=== PATIENT | male | born 1940 | race Caucasian/White ===

== ENCOUNTER 2016-06-07 16:18 | Emergency (ER) | payer MEDICARE, MEDICAID ==
[~2016-06-07] VITALS: Ht 160 cm; Wt 100.0 kg
[2016-06-07 16:59] VITALS: Ht 160 cm; Wt 100.0 kg
[2016-06-08] MEDS ORDERED: ONDANSETRON (ODT) 4 MG TAB ODT STA (00:04)
[2016-06-08] MEDS ORDERED: OXYC-279 PO (00:07)
[2016-06-08] MEDS ORDERED: BACTDS PO (00:07)
[2016-06-08] MEDS ORDERED: MUPI22OI2 TOP (00:07)
[2016-06-08] MEDS ORDERED: CEPH-443 PO (00:07)
--- NOTE | 2016-06-08 00:11 | ERD ---
ER Documentation Chief Complaint Date/Time DATE: 06/08/16 TIME: 00:09 Chief Complaint TRIPPED AND FALL.COMPLAINTS OF HEADACHE,BACK PAIN HPI 76-year-old man with a long history of chronic pain syndrome and lower extremity peripheral edema presents with low back pain and continued swelling in his lower legs. Patient states his symptoms got worse when he tripped over the pavement earlier today. Patient is requesting opioid analgesics and a prescription. Patient denies suicidal homicidal ideation, no fevers or chills, no breakdown in his skin, no bleeding, no complaints of chest pain or shortness of breath. Patient denies any head or neck injury. ROS All systems reviewed and are negative except as per history of present illness. Medications Home Meds Active Scripts Mupirocin* (Bactroban*) 2% -22 Gram Oint...g., 1 APPLIC TOP BID for 14 Days, #1 TUB Prov:GREG MONTANEZ MD 06/08/16 Sulfamethoxazole-Trimethoprim* (Bactrim* DS) 800-160 Mg Tab, 1 TAB PO BID for 7 Days, TAB Prov:GREG MONTANEZ MD 06/08/16 Cephalexin* (Keflex*) 500 Mg Capsule, 500 MG PO TID for 7 Days, CAP Prov:GREG MONTANEZ MD 06/08/16 Oxycodone HCl/Acetaminophen (Percocet 5-325 mg Tablet) 1 Each Tablet, 1 EACH PO TID for PAIN, #15 TAB Prov:GREG MONTANEZ MD 06/08/16 Allergies Allergies: Coded Allergies: Iodine and Iodide Containing Produc (Verified Allergy, Unknown, 05/08/16) PMhx/Soc Chronic pain syndrome, chronic lower extremity peripheral edema and stasis dermatitis, depression, chronic cellulitis of the lower extremities, hypertension, diabetes mellitus, hyperparathyroidism History of Surgery: No Anesthesia Reaction: No Hx Neurological Disorder: No Hx Respiratory Disorders: No Hx Cardiac Disorders: Yes (hyperlipidemia, htn) Hx Psychiatric Problems: Yes (depression) Hx Miscellaneous Medical Probl: Yes (cellulitis, ckd, uti, anemia, hyperparathyroidism,venous/arterial insufficie) Hx Alcohol Use: No Hx Substance Use: No Hx Tobacco Use: No Smoking Status: Never smoker FmHx Family History: No diabetes Physical Exam Vitals Vital Signs Date Time Temp Pulse Resp B/P Pulse Ox O2 Delivery O2 Flow Rate FiO2 06/08/16 00:56 98.0 80 20 160/69 100 Room Air 06/07/16 23:06 98.3 78 20 188/89 100 Room Air 06/07/16 16:59 98.1 77 18 210/96 98 Physical Exam GENERAL: Well-developed, well-nourished, well-hydrated, in no apparent distress , looks nontoxic in appearance, afebrile HEENT: Moist mucous membranes, pink conjunctiva, no cervical spine tenderness or step-off deformities, no goiter, no jaundice or icterus, extraocular movements intact without pain. No submandibular induration, and no pharyngeal erythema NEURO: Alert and oriented 3, cranial nerves II through XII intact bilaterally, pupils equal round reactive to light, no focal deficits or facial asymmetry, sensation intact distally Strength 5/5 in upper and lower extremities bilaterally CARDIAC: Regular rate and rhythm, no murmurs rubs or gallops LUNGS: Clear bilaterally no wheezing crackles or stridor ABDOMEN: Soft nontender, no guarding, no rigidity, no rebound, no psoas sign no obturator sign. Normoactive bowel sounds SKIN: Warm and dry to touch, no abrasions, contusions, or hematomas, no lacerations, no ecchymosis, no target lesions, and without ulcers EXTREMITIES: No clubbing cyanosis, chronic stasis dermatitis and erythematous skin changes to the lower extremities, calves are bilaterally symmetrical, no Homans sign, no popliteal cord sign. Distal pulses equal and bilateral PSYCH: Normal affect without agitation or irritability Results 24 hrs Current Medications Medications (Trade) Dose Ordered Sig/Cr Route PRN Reason Start Time Stop Time Status Last Admin Dose Admin Morphine Sulfate (morphine) 4 mg ONCE ONCE IM 06/08/16 00:30 06/08/16 00:32 DC 06/08/16 00:50 Ondansetron HCl (Zofran Odt) 4 mg ONCE STAT ODT 06/08/16 00:04 06/08/16 00:06 DC 06/08/16 00:50 Clonidine (Catapres) 0.1 mg ONCE ONCE PO 06/08/16 00:30 06/08/16 00:32 DC 06/08/16 00:50 Mupirocin (Bactroban) 1 applic ONCE ONCE TOP 06/08/16 00:30 06/08/16 00:32 DC 06/08/16 00:50 Procedures/MDM I administered morphine 4 mg intramuscular injection, Zofran 4 mg ODT sublingual , cephalexin 500 mg p.o., clonidine 0.1 mg p.o. for hypertension. Blood pressure improved after medications were administered. I also administered mupirocin 2% antibiotic ointment to the lower extremities bilaterally and provided verbal instructions to continue mupirocin antibiotic ointment topically to the legs. Patient has a long history of stasis dermatitis and erythema to the legs and has in the past been treated multiple times with oral antibiotics. He states he sleeps in his car, and I offered him a social media marketer consultation although he refused. I recommended he follow-up with his PMD and wound clinic and gave him the address and hours of operation of our wound clinic. I will be prescribing him oral antibiotics and suspect he can be treated successfully with these antibiotics over the course of 1 week. I also recommended strict compliance with his antihypertensive medications. Patient was hypertensive here in the ED although after treatment blood pressure fell to within normal limits. Differential diagnoses considered, included but not limited to septic arthritis , aortic dissection, abdominal aortic aneurysm, sepsis, stroke, meningitis, encephalitis, pneumonia, appendicitis, cholecystitis, bowel obstruction, pyelonephritis, nephrolithiasis, cystitis, as well as metabolic, hematologic, and electrolyte abnormalities. As well as abscess, cellulitis, fractures, and dislocations. Patient feels much better at this time, and vital signs are normal, symptoms have improved. I did give strict instructions to return to the ED if symptoms continue or worsen, patient will otherwise follow-up with primary care physician. Patient understood instructions and agreed to plan. Departure Diagnosis: Primary Impression: Chronic pain Chronic pain type: chronic pain syndrome Qualified Code: G89.4 - Chronic pain syndrome Additional Impressions: Back pain Back pain location: low back pain Chronicity: acute Back pain laterality: bilateral Sciatica presence: without sciatica Qualified Code: M54.5 - Acute bilateral low back pain without sciatica Stasis dermatitis Laterality: bilateral Qualified Code: I83.11 - Venous stasis dermatitis of both lower extremities Hypertension Hypertension type: essential hypertension Qualified Code: I10 - Essential hypertension Condition: Good Patient Instructions: Back Pain (Acute Or Chronic), Peripheral Edema, Bilateral GREG MONTANEZ MD Jun 08, 2016 00:11
[2016-06-08] MEDS ORDERED: MUPIROCIN 2% 22 GM OINT TOP ONE (00:30)
[2016-06-08] MEDS ORDERED: morphine 10 MG INJ IM ONE (00:30)
[2016-06-08 00:56] VITALS: BP 160/69; PULSE 80; RESP 20; TEMP 98
== END 2016-06-08 01:11 | disposition home or self-care (01) ==
LOC: E/R 16:18
DX: S39.92XA Unspecified injury of lower back, initial encounter (principal); I83.11 Varicose veins of right lower extremity with inflammation; G89.4 Chronic pain syndrome; I12.9 Hypertensive chronic kidney disease with stage 1 through stage 4 chronic kidney disease, or unspecified chronic kidney disease; N18.9 Chronic kidney disease, unspecified; E11.9 Type 2 diabetes mellitus without complications; W01.0XXA Fall on same level from slipping, tripping and stumbling without subsequent striking against object, initial encounter; Y92.480 Sidewalk as the place of occurrence of the external cause
CPT/HCPCS: 96372; J2270

== ENCOUNTER 2016-06-23 17:33 | Emergency (ER) | payer MEDICARE, MEDICAID ==
[~2016-06-23] VITALS: Ht 157.5 cm; Wt 90.0 kg
[~2016-06-23 17:33] MED LIST: BACTDS PO; CEPH-443 PO; MUPI22OI2 TOP; OXYC-279 PO
[2016-06-23 17:41] VITALS: Ht 157.5 cm; Wt 90.0 kg
[2016-06-23] MEDS ORDERED: HYDROCODONE/APAP (10/325) TAB PO ONE (23:30)
[2016-06-23 23:38] LABS: BASOPHILS % 0.6 % (0.0-2.0); EOSINOPHILS % 0.6 % (0.0-7.0); HEMATOCRIT 39.7 % (42.0-52.0); HEMOGLOBIN 12.8 g/dl (14.0-18.0); LYMPHOCYTES # 1.3 10^3/ul (0.8-2.9); LYMPHOCYTES % 19.2 % (15.0-51.0); MEAN CORPUSCULAR HGB CONC 32.4 g/dl (32.0-37.0); MEAN CORPUSCULAR VOLUME 89.6 fl (82.0-101.0); MEAN PLATELET VOLUME 9.3 fl (7.4-10.4); MONOCYTE # 0.9 10^3/ul (0.3-0.9); MONOCYTES % 13.5 % (0.0-11.0); NEUTROPHIL # 4.4 10^3/ul (1.6-7.5); NEUTROPHILS % 66.1 % (39.0-77.0); PLATELET COUNT 158 10^3/UL (140-440); RED BLOOD COUNT 4.43 10^6/ul (4.70-6.10); RED CELL DISTRIBUTION WIDTH 16.8 % (11.5-14.5); UNCORRECTED WBC 6.6 10^3/ul (4.8-10.8); WHITE BLOOD COUNT 6.6 10^3/ul (4.8-10.8)
[2016-06-23 23:39] LABS: CONDITION 1; LH ANALYZER COMMENTS 1
[2016-06-24] MEDS ORDERED: NAPR-688 PO (00:15)
[2016-06-24] MEDS ORDERED: HYDR-906 PO (00:15)
--- NOTE | 2016-06-24 00:32 | ERD ---
ER Documentation Chief Complaint Date/Time DATE: 06/24/16 TIME: 00:25 Chief Complaint NIKOLAS LEG SWELLING HPI 76-year-old male presents emergency room for bilateral foot pain. States both of his feet are sore. Believes that he was walking and got gravel prescription on his feet. Also states that he has chronic back pain. He recently drove to [place] as he normally does these days is 1 of his primary care doctors fired him and so they would not give him any more pain medication because he believed he was selling it. He has another primary care doctor that he has not yet had an appointment with. [place] has [place] that he had purchased in [place] including OxyContin. Denies fevers chills. States he is on medication for high blood pressure high cholesterol and pain. States he is fully ambulatory but does have sore feet when he walks. Denies any shortness of breath. ROS All systems reviewed and are negative except as per history of present illness. Medications Home Meds Active Scripts Naproxen* (Naproxen*) 500 Mg Tablet, 500 MG PO BID Y for PAIN, #20 TAB Prov:MISHA TOLEDO DO 06/24/16 Hydrocodone/Acetaminophen ([place] 5-325 Tablet) 1 Each Tablet, 1 EACH PO Q6, #14 TAB Prov:MISHA TOLEDO DO 06/24/16 Mupirocin* (Bactroban*) 2% -22 Gram Oint...g., 1 APPLIC TOP BID for 14 Days, #1 TUB Prov:GREG MONTANEZ MD 06/08/16 Sulfamethoxazole-Trimethoprim* (Bactrim* DS) 800-160 Mg Tab, 1 TAB PO BID for 7 Days, TAB Prov:GREG MONTANEZ MD 06/08/16 Cephalexin* (Keflex*) 500 Mg Capsule, 500 MG PO TID for 7 Days, CAP Prov:GREG MONTANEZ MD 06/08/16 Oxycodone HCl/Acetaminophen (Percocet 5-325 mg Tablet) 1 Each Tablet, 1 EACH PO TID for PAIN, #15 TAB Prov:GREG MONTANEZ MD 06/08/16 Allergies Allergies: Coded Allergies: Iodine and Iodide Containing Produc (Verified Allergy, Unknown, 05/08/16) PMhx/Soc History of Surgery: No Anesthesia Reaction: No Hx Neurological Disorder: No Hx Respiratory Disorders: No Hx Cardiac Disorders: Yes (hyperlipidemia, htn) Hx Psychiatric Problems: Yes (depression) Hx Miscellaneous Medical Probl: Yes (cellulitis, ckd, uti, anemia, hyperparathyroidism,venous/arterial insufficie) Hx Alcohol Use: No Hx Substance Use: No Hx Tobacco Use: No Smoking Status: Never smoker Physical Exam Vitals Vital Signs Date Time Temp Pulse Resp B/P Pulse Ox O2 Delivery O2 Flow Rate FiO2 06/23/16 23:09 98.7 75 20 134/93 99 Room Air 06/23/16 17:41 98.1 75 20 188/78 98 Physical Exam Const: [] No distress Head: Atraumatic Eyes: Normal Conjunctiva Resp: Clear to auscultation bilaterally Cardio: Regular rate and rhythm, no murmurs Skin: No petechiae or rashes Back: No midline or flank tenderness Ext: , Bilateral alvarez erythema most consistent with venous stasis, distal pulses intact bilaterally posterior tibial and dorsalis pedis. There are no lesions on the feet indicative of any skin disruption. There is no calor. Toenails are slightly overgrown. Neur: Awake and alert Psych: Normal Mood and Affect Result Diagram: 06/23/16 9606 Results 24 hrs Laboratory Tests Test 06/23/16 23:27 Basophils # 0.010^3/ul Basophils % 0.6% Blood Morphology Comment Eosinophils # 0.010^3/ul Eosinophils % 0.6% Hematocrit 39.7% Hemoglobin 12.8g/dl Lymphocytes # 1.310^3/ul Lymphocytes % 19.2% Mean Corpuscular Hemoglobin 29.0pg Mean Corpuscular Hemoglobin Concent 32.4g/dl Mean Corpuscular Volume 89.6fl Mean Platelet Volume 9.3fl Monocytes # 0.910^3/ul Monocytes % 13.5% Neutrophils # 4.410^3/ul Neutrophils % 66.1% Nucleated Red Blood Cells # 0.010^3/ul Nucleated Red Blood Cells % 0.0/100WBC Platelet Count 12713^3/UL Red Blood Count 4.4310^6/ul Red Cell Distribution Width 16.8% White Blood Count 6.610^3/ul Current Medications Medications (Trade) Dose Ordered Sig/Cr Route PRN Reason Start Time Stop Time Status Last Admin Dose Admin Acetaminophen/ Hydrocodone Bitart ([place] ()) 1 tab ONCE ONCE PO 06/23/16 23:30 06/23/16 23:31 DC Procedures/MDM 76-year-old male who recently [place] Patient has sore feet but no signs of skin disruption. No signs of infection. No reason to suspect DVT as patient does not have swelling, Homans sign, there is very low and risk factors. His drive to [place] was only 2-1/2 hours. Blood pressure was not extremely high in the emergency room and I would prefer he go to his primary care doctor rather than giving him a blood pressure medicine now is is more dangerous to have the blood pressure go too low than to high. Blood pressure in the room was 121/83. I am going to discharge him with a few [place] and naproxen until he can get pain relief. He is fully ambulatory and is not in much pain he did state that he did not want any pain medication. Discharging with a list of low-cost providers as well as County follow-up in case he has a disagreement with his new doctor. Departure Diagnosis: Primary Impression: Venous stasis Additional Impression: Chronic pain Condition: Stable Patient Instructions: Sprain Foot Referrals: COMMUNITY CLINICS YOU HAVE RECEIVED A MEDICAL SCREENING EXAM AND THE RESULTS INDICATE THAT YOU DO NOT HAVE A CONDITION THAT REQUIRES URGENT TREATMENT IN THE EMERGENCY DEPARTMENT. FURTHER EVALUATION AND TREATMENT OF YOUR CONDITION CAN WAIT UNTIL YOU ARE SEEN IN YOUR DOCTORS OFFICE WITHIN THE NEXT 1-2 DAYS. IT IS YOUR RESPONSIBILITY TO MAKE AN APPOINTMENT FOR FOLOW-UP CARE. IF YOU HAVE A PRIMARY DOCTOR --you should call your primary doctor and schedule an appointment IF YOU DO NOT HAVE A PRIMARY DOCTOR YOU CAN CALL OUR PHYSICIAN REFERRAL HOTLINE AT IF YOU CAN NOT AFFORD TO SEE A PHYSICIAN YOU CAN CHOSE FROM THE FOLLOWING [facility] [address] [facility] [address] [facility]. [facility] [address] [facility] [address] [facility] [address] [facility] [address] [facility]. [facility] YOU HAVE RECEIVED A MEDICAL SCREENING EXAM AND THE RESULTS INDICATE THAT YOU DO NOT HAVE A CONDITION THAT REQUIRES URGENT TREATMENT IN THE EMERGENCY DEPARTMENT. FURTHER EVALUATION AND TREATMENT OF YOUR CONDITION CAN WAIT UNTIL YOU ARE SEEN IN YOUR DOCTORS OFFICE WITHIN THE NEXT 1-2 DAYS. IT IS YOUR RESPONSIBILITY TO MAKE AN APPOINTMENT FOR FOLOW-UP CARE. IF YOU HAVE A PRIMARY DOCTOR --you should call your primary doctor and schedule and appointment IF YOU DO NOT HAVE A PRIMARY DOCTOR YOU CAN CALL OUR PHYSICIAN REFERRAL HOTLINE AT . IF YOU CAN NOT AFFORD TO SEE A PHYSICIAN YOU CAN CHOSE FROM THE FOLLOWING [facility]: [facility] [address] [place] [address] [facility] [address] [place], [place] [id number] [place] [address] [address] [place] [address] Additional Instructions: Call your primary care doctor TOMORROW for an appointment during the next 1-2 days.See the doctor sooner or return here if your condition worsens before your appointment time. MISHA TOLEDO DO Jun 24, 2016 00:32
[2016-06-24 00:41] VITALS: BP 128/90; PULSE 78; RESP 20; TEMP 98.6
== END 2016-06-24 01:25 | disposition home or self-care (01) ==
LOC: E/R 17:33
DX: I87.8 Other specified disorders of veins (principal); G89.29 Other chronic pain; I12.9 Hypertensive chronic kidney disease with stage 1 through stage 4 chronic kidney disease, or unspecified chronic kidney disease; N18.9 Chronic kidney disease, unspecified
CPT/HCPCS: 85025; 99283

== ENCOUNTER 2016-06-24 08:05 | Emergency (ER) | payer MEDICARE, MEDICAID ==
[~2016-06-24] VITALS: Ht 160 cm; Wt 93.0 kg
[~2016-06-24 08:05] MED LIST changes: +HYDR-906 PO; +NAPR-688 PO
[2016-06-24 08:07] VITALS: Ht 160 cm; Wt 93.0 kg
--- NOTE | 2016-06-24 10:18 | ERA ---
ER Documentation Chief Complaint Date/Time DATE: 06/24/16 TIME: 10:18 Chief Complaint fell last night c/o generalized bodyache and nausea since last night HPI 76-year-old man here for public health social worker evaluation and lower extremity edema. Patient was just seen and evaluated for this a few hours ago and discharge. He has been homeless for many years and sleeps in his car and refuses placement in a homeless care home. Patient denies fevers or chills, no chest pain or shortness of breath, no recent weight loss. ROS All systems reviewed and are negative except as per history of present illness. Medications Home Meds Discontinued Scripts Naproxen* (Naproxen*) 500 Mg Tablet, 500 MG PO BID Y for PAIN, #20 TAB Prov:MISHA TOLEDO DO 06/24/16 Hydrocodone/Acetaminophen ([place] 5-325 Tablet) 1 Each Tablet, 1 EACH PO Q6, #14 TAB Prov:MISHA TOLEDO DO 06/24/16 Mupirocin* (Bactroban*) 2% -22 Gram Oint...g., 1 APPLIC TOP BID for 14 Days, #1 TUB Prov:GREG OMNTANEZ MD 06/08/16 Sulfamethoxazole-Trimethoprim* (Bactrim* DS) 800-160 Mg Tab, 1 TAB PO BID for 7 Days, TAB Prov:GREG MONTANEZ MD 06/08/16 Cephalexin* (Keflex*) 500 Mg Capsule, 500 MG PO TID for 7 Days, CAP Prov:GREG MONTANEZ MD 06/08/16 Oxycodone HCl/Acetaminophen (Percocet 5-325 mg Tablet) 1 Each Tablet, 1 EACH PO TID for PAIN, #15 TAB Prov:GREG MONTANEZ MD 06/08/16 Allergies Allergies: Coded Allergies: Iodine and Iodide Containing Produc (Verified Allergy, Unknown, 05/08/16) PMhx/Soc Chronic pain syndrome, chronic lower extremity peripheral edema and stasis dermatitis, depression, chronic cellulitis of the lower extremities, hypertension, diabetes mellitus, hyperparathyroidism History of Surgery: No Anesthesia Reaction: No Hx Neurological Disorder: No Hx Respiratory Disorders: No Hx Cardiac Disorders: Yes (hyperlipidemia, htn) Hx Psychiatric Problems: Yes (depression) Hx Miscellaneous Medical Probl: Yes (cellulitis, ckd, uti, anemia, hyperparathyroidism,venous/arterial insufficie) Hx Alcohol Use: No Hx Substance Use: No Hx Tobacco Use: No Smoking Status: Never smoker FmHx Family History: No diabetes Physical Exam Vitals Vital Signs Date Time Temp Pulse Resp B/P Pulse Ox O2 Delivery O2 Flow Rate FiO2 06/24/16 09:51 97.5 68 20 155/56 97 Room Air 06/24/16 08:07 97.8 61 20 229/91 95 Physical Exam GENERAL: Well-developed, well-nourished, well-hydrated, in no apparent distress , looks nontoxic in appearance HEENT: Moist mucous membranes, pink conjunctiva, no cervical spine tenderness or step-off deformities, no goiter, no jaundice or icterus, extraocular movements intact without pain. No submandibular induration, and no pharyngeal erythema NEURO: Alert and oriented 3, cranial nerves II through XII intact bilaterally, pupils equal round reactive to light, no focal deficits or facial asymmetry, sensation intact distally Strength 5/5 in upper and lower extremities bilaterally CARDIAC: Regular rate and rhythm, no murmurs rubs or gallops LUNGS: Clear bilaterally no wheezing crackles or stridor ABDOMEN: Soft nontender, no guarding, no rigidity, no rebound, no psoas sign no obturator sign. Normoactive bowel sounds SKIN: Warm and dry to touch, no abrasions, contusions, or hematomas, no lacerations, no ecchymosis, no target lesions, and without ulcers EXTREMITIES: No clubbing cyanosis, 2+ pitting edema in the lower extremities bilaterally with chronic stasis dermatitis changes to the skin, calves are bilaterally symmetrical, no Homans sign, no popliteal cord sign. Distal pulses equal and bilateral PSYCH: Normal affect without agitation or irritability Results 24 hrs Current Medications Medications (Trade) Dose Ordered Sig/Cr Route PRN Reason Start Time Stop Time Status Last Admin Dose Admin Clonidine (Catapres) 0.1 mg ONCE ONCE PO 06/24/16 08:30 06/24/16 08:31 DC 06/24/16 08:34 Procedures/MDM Patient was hypertensive and I administered clonidine 0.1 mg p.o. with improvement. I reviewed his previous medical history and recent workups and lab values. I obtain public health social worker consultation from the emergency department and she saw and evaluated the patient down here in the ED and gave multiple written and verbal instructions for follow-up and placement. Differential diagnoses considered, included but not limited to acute coronary syndrome, pulmonary embolism, aortic dissection, abdominal aortic aneurysm, sepsis, stroke, meningitis, encephalitis, pneumonia, appendicitis, cholecystitis , bowel obstruction, pyelonephritis, nephrolithiasis, cystitis, as well as metabolic, hematologic, and electrolyte abnormalities. As well as abscess, cellulitis, fractures, and dislocations. Patient feels much better at this time, and vital signs are normal, symptoms have improved. I did give strict instructions to return to the ED if symptoms continue or worsen, patient will otherwise follow-up with primary care physician. Patient understood instructions and agreed to plan. Departure Diagnosis: Primary Impression: Hypertension Qualified Code: I10 - Essential hypertension Additional Impression: Peripheral edema Condition: Good Patient Instructions: High Blood Pressure (Hypertension) GREG MONTANEZ MD Jun 24, 2016 10:18
[2016-06-24 15:10] VITALS: BP 158/79; PULSE 65; RESP 20; TEMP 98
== END 2016-06-24 15:04 | disposition home or self-care (01) ==
LOC: E/R 08:05
DX: I12.9 Hypertensive chronic kidney disease with stage 1 through stage 4 chronic kidney disease, or unspecified chronic kidney disease (principal); E11.9 Type 2 diabetes mellitus without complications; N18.9 Chronic kidney disease, unspecified
CPT/HCPCS: 99283